=== PATIENT | male | born 1975 | race Caucasian/White ===

== ENCOUNTER 2018-01-17 14:12 | Observation (INO) | payer BC ==
[~2018-01-17] VITALS: Ht 188 cm; Wt 128.0 kg
[2018-01-17] VITALS (10 sets, daily range): BP systolic 114–142; BP diastolic 58–95; PULSE 54–127; RESP 16–22; TEMP 97.7; O2SAT 94–98
[2018-01-17] MEDS ORDERED: METOPROLOL TARTRATE 5 MG/5 ML VIAL IV PUSH STA ×2 (14:43→15:23)
[2018-01-17] MEDS ORDERED: SODIUM CHLOR 0.9% 1000 ML INJ 1,000 ML IV ONE ×3 (14:45→19:45)
[2018-01-17] MEDS ORDERED: SODIUM CHLORIDE 0.9% FLUSH 10 ML FLUSH IVF PRN (14:45)
[2018-01-17] MEDS ORDERED: METOPROLOL TARTRATE 5 MG/5 ML VIAL IV PUSH ONE (15:15)
[2018-01-17 15:25] LABS: AUTOMATED NEUTROPHIL # 7.2 TH/MM3 (1.8-7.7); BASOPHIL # 0.1 TH/MM3 (0-0.2); BASOPHIL % 0.6 % (0.0-2.0); EOSINOPHIL # 0.1 TH/MM3 (0-0.4); EOSINOPHIL % 1.3 % (0.0-4.0); HEMATOCRIT 49.1 % (39.0-51.0); HEMOGLOBIN 16.9 GM/DL (13.0-17.0); LYMPH % 8.4 % (9.0-44.0); LYMPHOCYTE # 0.8 TH/MM3 (1.0-4.8); MEAN CELL VOLUME 79.3 FL (80.0-100.0); MEAN CORPUSCULAR HEMOGLOBIN 27.3 PG (27.0-34.0); MEAN CORPUSCULAR HGB CONC 34.4 % (32.0-36.0); MEAN PLATELET VOLUME 9.1 FL (7.0-11.0); MONO % 11.2 % (0.0-8.0); NEUT % 78.5 % (16.0-70.0); PLATELET COUNT 257 TH/MM3 (150-450); RED BLOOD COUNT 6.19 MIL/MM3 (4.50-5.90); RED CELL DISTRIBUTION WIDTH 14.1 % (11.6-17.2); WHITE BLOOD COUNT 9.1 TH/MM3 (4.0-11.0)
--- NOTE | 2018-01-17 15:26 | RADRPT ---
EXAM DATE/TIME: 01/17/2018 14:45 [facility] COMPARISON: No previous studies available for comparison. INDICATIONS : Palpitations, chest pain, short of breath. MEDICAL HISTORY : high blood pressure. SURGICAL HISTORY : None. ENCOUNTER: Initial ACUITY: 2 days PAIN SCORE: 5/10 LOCATION: Bilateral chest FINDINGS: A single view of the chest demonstrates the lungs to be symmetrically aerated without evidence of mas s, infiltrate or effusion. The cardiomediastinal contours are unremarkable. Osseous structures are intact. CONCLUSION: Normal examination. Eamon Luis MD on January 17, 2018 at 15:24 Board Certified Radiologist. This report was verified electronically.
[2018-01-17 15:34] LABS: PROTHROMBIN TIME - PATIENT 10.4 SEC (9.8-11.6)
--- NOTE | 2018-01-17 15:42 | PD ---
HPI Chief Complaint: Cardiac Complaint Time Seen by Provider: 14:24 Travel History International Travel<30 days: No Contact w/Intl Traveler<30days: No Traveled to known affect area: No History of Present Illness HPI Patient is a 42-year-old male who presents the emergency room with complaints of palpitations. Patient reports that he began to have palpitations last night , reports that he was just not feeling well. Patient reports that symptoms persisted until this morning, reports that they he does feel short of breath with the symptoms. Patient is from [facility], reports that he drove to [place] for vacation about 2 weeks ago. Patient denies history of hypertension or hyperlipidemia or diabetes, denies history of atrial fibrillation. Patient with no history of PE or DVT. PFSH Past Medical History Medical History: Denies Significant Hx Diminished Hearing: No Tetanus Vaccination: < 5 Years Influenza Vaccination: No Social History Alcohol Use: No Tobacco Use: Yes Substance Use: No Allergies-Medications (Allergen,Severity, Reaction): Coded Allergies: No Known Allergies (Unverified , 01/17/18) Review of Systems General / Constitutional: No: Fever Eyes: No: Visual changes HENT: No: Headaches Cardiovascular: Positive: Palpitations, No: Chest Pain or Discomfort Respiratory: Positive: Shortness of Breath Gastrointestinal: No: Abdominal Pain Genitourinary: No: Dysuria Musculoskeletal: No: Pain Skin: No Rash Neurologic: No: Weakness Psychiatric: No: Depression Endocrine: No: Polydipsia Hematologic/Lymphatic: No: Easy Bruising Physical Exam Narrative GENERAL: Moderate distress SKIN: Focused skin assessment warm/dry. HEAD: Atraumatic. Normocephalic. EYES: Pupils equal and round. No scleral icterus. No injection or drainage. ENT: No nasal bleeding or discharge. Mucous membranes pink and moist. NECK: Trachea midline. No JVD. CARDIOVASCULAR: Irregularly irregular. No murmur appreciated. RESPIRATORY: No accessory muscle use. Clear to auscultation. Breath sounds equal bilaterally. GASTROINTESTINAL: Abdomen soft, non-tender, nondistended. Hepatic and splenic margins not palpable. MUSCULOSKELETAL: No obvious deformities. No clubbing. No cyanosis. No edema. NEUROLOGICAL: Awake and alert. No obvious cranial nerve deficits. Motor grossly within normal limits. Normal speech. PSYCHIATRIC: Appropriate mood and affect; insight and judgment normal. Data Data Last Documented VS Vital Signs Date Time Temp Pulse Resp B/P (MAP) Pulse Ox O2 Delivery O2 Flow Rate FiO2 01/17/18 15:36 113 18 115/62 (79) 98 01/17/18 14:48 Room Air Orders Orders Electrocardiogram (01/17/18 14:42) Ckmb (Isoenzyme) Profile (01/17/18 14:42) Complete Blood Count With Diff (01/17/18 14:42) Comprehensive Metabolic Panel (01/17/18 14:42) Magnesium (Mg) (01/17/18 14:42) Prothrombin Time / Inr (Pt) (01/17/18 14:42) Act Partial Throm Time (Ptt) (01/17/18 14:42) Troponin I (01/17/18 14:42) Chest, Single Ap (01/17/18 14:42) Ecg Monitoring (01/17/18 14:42) Iv Access Insert/Monitor (01/17/18 14:42) Oximetry (01/17/18 14:42) Sodium Chloride 0.9% Flush (Ns Flush) (01/17/18 14:45) Sodium Chlor 0.9% 1000 Ml Inj (Ns 1000 M (01/17/18 14:45) Metoprolol Tartrate Inj (Lopressor Inj) (01/17/18 14:43) Metoprolol Tartrate Inj (Lopressor Inj) (01/17/18 15:15) Metoprolol Tartrate Inj (Lopressor Inj) (01/17/18 15:23) Aspirin Chew (Aspirin Chew) (01/17/18 15:45) Ventilation & Perfusion Scan (01/17/18 ) Us Leg Venous Doppler Bilat (01/17/18 ) Admit Order (Ed Use Only) (01/17/18 16:49) Labs Laboratory Tests Test 01/17/18 14:58 White Blood Count 9.1 TH/MM3 Red Blood Count 6.19 MIL/MM3 Hemoglobin 16.9 GM/DL Hematocrit 49.1 % Mean Corpuscular Volume 79.3 FL Mean Corpuscular Hemoglobin 27.3 PG Mean Corpuscular Hemoglobin Concent 34.4 % Red Cell Distribution Width 14.1 % Platelet Count 257 TH/MM3 Mean Platelet Volume 9.1 FL Neutrophils (%) (Auto) 78.5 % Lymphocytes (%) (Auto) 8.4 % Monocytes (%) (Auto) 11.2 % Eosinophils (%) (Auto) 1.3 % Basophils (%) (Auto) 0.6 % Neutrophils # (Auto) 7.2 TH/MM3 Lymphocytes # (Auto) 0.8 TH/MM3 Monocytes # (Auto) 1.0 TH/MM3 Eosinophils # (Auto) 0.1 TH/MM3 Basophils # (Auto) 0.1 TH/MM3 CBC Comment DIFF FINAL Differential Comment Prothrombin Time 10.4 SEC Prothromb Time International Ratio 1.0 RATIO Activated Partial Thromboplast Time 27.3 SEC Blood Urea Nitrogen 21 MG/DL Creatinine 1.67 MG/DL Random Glucose 171 MG/DL Total Protein 7.7 GM/DL Albumin 3.7 GM/DL Calcium Level 9.2 MG/DL Magnesium Level 2.1 MG/DL Alkaline Phosphatase 118 U/L Aspartate Amino Transf (AST/SGOT) 28 U/L Alanine Aminotransferase (ALT/SGPT) 57 U/L Total Bilirubin 1.3 MG/DL Sodium Level 140 MEQ/L Potassium Level 3.7 MEQ/L Chloride Level 104 MEQ/L Carbon Dioxide Level 25.7 MEQ/L Anion Gap 10 MEQ/L Estimat Glomerular Filtration Rate 46 ML/MIN Total Creatine Kinase 65 U/L Troponin I LESS THAN 0.02 NG/ML MDM Medical Decision Making Medical Screen Exam Complete: Yes Emergency Medical Condition: Yes Medical Record Reviewed: Yes Interpretation(s) EKG at 1439: A. fib with RVR at 140 bpm, QT/QTc 302/383 Differential Diagnosis A. fib, PE, electrolyte abnormality Narrative Course During the course of the patients emergency department visit, the patients history, examination, and differential diagnosis were reviewed with the patient. The patient was placed on a bus driver/monitor with oximetry and frequent blood pressure monitoring. The patient had an IV access obtained and blood work sent for analysis. The patient was initially provided IV metoprolol 5 mg every 5 hours 3 with improvement of heart rate. Patient was also given aspirin. The patients laboratory studies were reviewed and remarkable for: CBC & BMP Diagram 01/17/18 14:58 Total Protein 7.7, Albumin 3.7, Calcium Level 9.2, Magnesium Level 2.1, Alkaline Phosphatase 118 H, Aspartate Amino Transf (AST/SGOT) 28, Alanine Aminotransferase (ALT/SGPT) 57, Total Bilirubin 1.3 H Radiology studies were reviewed and remarkable for: Last Impressions Chest X-Ray 01/17/18 4492 Signed Impressions: Service Date/Time: Wednesday, January 17, 2018 14:45 - CONCLUSION: Normal examination. Eamon Luis MD Patient's creatinine is 1.67, troponin 0 0.02 Patient's heart rate currently 110-120 after 3 doses of IV Lopressor. Patient with recent travels from [place] to [place] (17.5 hour car ride), patient with new onset A. fib which could be secondary to PE. He does have an elevated creatinine and a CTA cannot be ordered to rule out PE. VQ scan as well as doppler US ordered. Patient will require admission to the hospital for new onset afib. An aspirin was given to patient upon arrival to ER case reviewed with FP resident who accepts pt to the service under Dr. Walker, understands that vq and doppler us of legs are pending - service will follow up with results of studies during admission Diagnosis Primary Impression: Atrial fibrillation with RVR Additional Impression: Renal insufficiency Admitting Information Admitting Physician Requests: Observation Bridget Lemus DO Jan 17, 2018 15:42
[2018-01-17] MEDS ORDERED: ASPIRIN 81 MG CHEW TAB CHEW ONE (15:45)
[2018-01-17 16:00] LABS: ALBUMIN 3.7 GM/DL (3.4-5.0); ALT (GPT) 57 U/L (12-78); AST (GOT) 28 U/L (15-37); BICARBONATE 25.7 MEQ/L (21.0-32.0); BLOOD UREA NITROGEN 21 MG/DL (7-18); CALCIUM 9.2 MG/DL (8.5-10.1); CHLORIDE 104 MEQ/L (98-107); CREATININE 1.67 MG/DL (0.60-1.30); GLOMERULAR FILTRATION RATE 46 ML/MIN (>89); GLUCOSE,RANDOM 171 MG/DL (74-106); MAGNESIUM 2.1 MG/DL (1.5-2.5); SODIUM (NA) 140 MEQ/L (136-145)
[2018-01-17 16:05] LABS: ALKALINE PHOSPHATASE 118 U/L (45-117); TOTAL BILIRUBIN ADULT 1.3 MG/DL (0.2-1.0); TOTAL PROTEIN 7.7 GM/DL (6.4-8.2); TROPONIN I LESS THAN 0.02 NG/ML (0.02-0.05)
--- NOTE | 2018-01-17 16:44 | HHI.HP ---
HPI Service Family Medicine Primary Care Physician Unknown Admission Diagnosis Diagnoses: International Travel<30 Days: No Contact w/Intl Traveler<30days: No Known Affected Area: No History of Present Illness 42 yo M presenting with chest pain, palpitations. First noticed symptoms last night when he developed some mild palpitations. Symptoms resolved until the morning of presentation when he developed some chest tightness, palpitations again. Symptoms have persisted all day. Also experiencing some jaw pain, nausea , overall not feeling well. Was getting SOB with exertion today. States he has had occasional palpitations in the past that would quickly resolve. Was treated for bronchitis with albuterol, Claritin 3 weeks ago. Has history of HTN. Review of Systems Constitutional: COMPLAINS OF: Fever, Chills (subjective), DENIES: Weight gain, Weight loss Eyes: DENIES: Blurred vision, Eye pain Ears, nose, mouth, throat: COMPLAINS OF: Throat pain Respiratory: DENIES: Wheezing, Sputum production Cardiovascular: COMPLAINS OF: Chest pain, Palpitations, Dyspnea on Exertion, DENIES: Syncope, Lower Extremity Edema Gastrointestinal: COMPLAINS OF: Nausea, DENIES: Abdominal pain, Bloody stools, Constipation, Diarrhea, Vomiting Genitourinary: DENIES: Hematuria, Dysuria Musculoskeletal: DENIES: Joint Swelling Integumentary: DENIES: Rash Neurologic: DENIES: Headache, Localized weakness Psychiatric: DENIES: Confusion Past Family Social History Past Medical History HTN Past Surgical History I&D of L leg 1 year ago Tonsillectomy Reported Medications Chlorthalidone 50mg daily Lisinopril 40mg daily Allergies: Coded Allergies: No Known Allergies (Unverified , 01/17/18) Family History Heart disease in both sides of family Stroke in maternal grandfather Social History Lives in [facility], in [facility] for vacation Drinks several beers per day, sometimes more on the weekends. Never had symptoms of alcohol withdrawal Quit smoking 5 months ago. Formerly 1 pack per week for 10+ years No illicit drugs Physical Exam Vital Signs Vital Signs Date Time Temp Pulse Resp B/P (MAP) Pulse Ox O2 Delivery O2 Flow Rate FiO2 01/17/18 15:36 113 18 115/62 (79) 98 01/17/18 14:57 125 01/17/18 14:48 150 Room Air 01/17/18 14:17 127 22 142/60 (87) 98 Physical Exam GENERAL: This is a well-nourished, well-developed patient, in no apparent distress. SKIN: No rashes, ecchymoses or lesions. Cool and dry. HEAD: Atraumatic. Normocephalic. No temporal or scalp tenderness. EYES: Pupils equal round and reactive. Extraocular motions intact. No scleral icterus. No injection or drainage. ENT: Nose without bleeding, purulent drainage or septal hematoma. Throat without erythema, tonsillar hypertrophy or exudate. Uvula midline. Airway patent. NECK: Trachea midline. No JVD or lymphadenopathy. Supple, nontender, no meningeal signs. CARDIOVASCULAR: Irregularly irregular rhythm, rate in the 120's. No murmurs appreciated RESPIRATORY: Clear to auscultation. Breath sounds equal bilaterally. No wheezes , rales, or rhonchi. GASTROINTESTINAL: Abdomen soft, non-tender, nondistended. No hepato-splenomegaly , or palpable masses. No guarding. MUSCULOSKELETAL: Extremities without clubbing, cyanosis, or edema. No joint tenderness, effusion, or edema noted. No calf tenderness. Negative Homans sign bilaterally. NEUROLOGICAL: Awake and alert. Cranial nerves II through XII intact. Motor and sensory grossly within normal limits. Five out of 5 muscle strength in all muscle groups. Normal speech. Laboratory Laboratory Tests Test 01/17/18 14:58 White Blood Count 9.1 Red Blood Count 6.19 Hemoglobin 16.9 Hematocrit 49.1 Mean Corpuscular Volume 79.3 Mean Corpuscular Hemoglobin 27.3 Mean Corpuscular Hemoglobin Concent 34.4 Red Cell Distribution Width 14.1 Platelet Count 257 Mean Platelet Volume 9.1 Neutrophils (%) (Auto) 78.5 Lymphocytes (%) (Auto) 8.4 Monocytes (%) (Auto) 11.2 Eosinophils (%) (Auto) 1.3 Basophils (%) (Auto) 0.6 Neutrophils # (Auto) 7.2 Lymphocytes # (Auto) 0.8 Monocytes # (Auto) 1.0 Eosinophils # (Auto) 0.1 Basophils # (Auto) 0.1 CBC Comment DIFF FINAL Differential Comment Prothrombin Time 10.4 Prothromb Time International Ratio 1.0 Activated Partial Thromboplast Time 27.3 Blood Urea Nitrogen 21 Creatinine 1.67 Random Glucose 171 Total Protein 7.7 Albumin 3.7 Calcium Level 9.2 Magnesium Level 2.1 Alkaline Phosphatase 118 Aspartate Amino Transf (AST/SGOT) 28 Alanine Aminotransferase (ALT/SGPT) 57 Total Bilirubin 1.3 Sodium Level 140 Potassium Level 3.7 Chloride Level 104 Carbon Dioxide Level 25.7 Anion Gap 10 Estimat Glomerular Filtration Rate 46 Total Creatine Kinase 65 Troponin I LESS THAN 0.02 Result Diagram: 01/17/18 1458 01/17/18 1458 Imaging Last 48 hours Impressions Chest X-Ray 01/17/18 1442 Signed Impressions: Service Date/Time: Wednesday, January 17, 2018 14:45 - CONCLUSION: Normal examination. MD Nafisa Montanez VTE Risk Assessment Nafisa VTE Risk Assessment: No/Low Risk (score <= 1) Leticiai Risk Assessment Model Point Value = 1 Point Value = 2 Point Value = 3 Point Value = 5 Age 41-60 Minor surgery BMI > 25 kg/m2 Swollen legs Varicose veins or History of unexplained or recurrent spontaneous Oral contraceptives or hormone replacement Sepsis (< 1 month) Serious lung disease, including pneumonia (< 1 month) Abnormal pulmonary function Acute myocardial infarction Congestive heart failure (< 1 month) History of inflammatory bowel disease Medical patient at bed rest Age 61-74 Arthroscopic surgery Major open surgery (> 45 min) Laparoscopic surgery (> 45 min) Malignancy Confined to bed (> 72 hours) Immobilizing plaster cast Central venous access Age >= 75 History of VTE Family history of VTE Factor V Leiden Prothrombin [id number] Lupus anticoagulant Anticardiolipin antibodies Elevated serum homocysteine Heparin-induced thrombocytopenia Other congenital or acquired thrombophilia Stroke (< 1 month) Elective arthroplasty Hip, pelvis, or leg fracture Acute spinal cord injury (< 1 month) Prophylaxis Regimen Total Risk Factor Score Risk Level Prophylaxis Regimen 0-1 Low Early ambulation 2 Moderate Order ONE of the following: *Sequential Compression Device (SCD) *Heparin 5000 units SQ BID 3-4 Higher Order ONE of the following medications: *Heparin 5000 units SQ TID *Enoxaparin/Lovenox 40 mg SQ daily (WT < 150 kg, CrCl > 30 mL/min) *Enoxaparin/Lovenox 30 mg SQ daily (WT < 150 kg, CrCl > 10-29 mL/min) *Enoxaparin/Lovenox 30 mg SQ BID (WT < 150 kg, CrCl > 30 mL/min) AND/OR *Sequential Compression Device (SCD) 5 or more Highest Order ONE of the following medications: *Heparin 5000 units SQ TID (Preferred with Epidurals) *Enoxaparin/Lovenox 40 mg SQ daily (WT < 150 kg, CrCl > 30 mL/min) *Enoxaparin/Lovenox 30 mg SQ daily (WT < 150 kg, CrCl > 10-29 mL/min) *Enoxaparin/Lovenox 30 mg SQ BID (WT < 150 kg, CrCl > 30 mL/min) AND *Sequential Compression Device (SCD) Assessment and Plan Assessment and Plan 42-year-old male with a history of hypertension presenting to the ED with chest pain, palpitations. Initial evaluation is found patient to be in A. fib with RVR and SUE. Patient is also been complaining of dyspnea on exertion, and in the setting of a recent 17 hour car ride will also order a VQ scan and lower extremity Dopplers to rule out DVT/PE. Consulting cardiology on admission Code Status Full code Discussed Condition With Dr. Jose Morales Problem List: (1) Atrial fibrillation with RVR ICD Codes: I48.91 - Unspecified atrial fibrillation Status: Acute Plan: Patient presented with chest pain, palpitations for the last 24 hours New onset A. fib with RVR on admission Initial ACS workup negative Received metoprolol 5 mg IV push 3 in the ED, continues to have heart rates in the 110s-120s Received aspirin 162mg chew in ED Scheduling Cardizem 30 mg p.o. 4 times daily Aspiring 81mg daily Consulting cardiology Echocardiogram Trending EKG, troponins TSH pending (2) HTN (hypertension) ICD Codes: I10 - Essential (primary) hypertension Plan: Known history of HTN Takes Chlorthalidone 50mg daily, Lisinopril 40mg daily BP mildly elevated on admission to 142/60 Will continue home meds (3) Dyspnea on exertion ICD Codes: R06.09 - Other forms of dyspnea Plan: Patient reporting dyspnea on exertion for last 2 days Had recent 17 hour car ride from [facility] to [facility] V/Q scan pending (avoiding contrast in setting of elevated Cr) BLE dopplers pending (4) Hyperglycemia ICD Codes: R73.9 - Hyperglycemia, unspecified Plan: Noted to have elevated BG on admission (171) ordering A1c, will follow up AM labs (5) SUE (acute kidney injury) ICD Codes: N17.9 - Acute kidney failure, unspecified Plan: Patient with elevated Creatinine/BUN on admission of 1.67 / 21 Ratio is not consistent with pre-renal etiology Received 1 L bolus in ED Will monitor for now, may be baseline renal function (6) FEN Plan: No IVF for now will replete electrolytes as needed Regular diet SCDs for DVT prophylaxis Elvin Jeffrey MD R1 Jan 17, 2018 16:44
[2018-01-17] MEDS ORDERED: BISACODYL 10 MG SUPP RECTAL PRN (17:00)
[2018-01-17] MEDS ORDERED: ONDANSETRON HCL 4 MG/2 ML VIAL IVP PRN (17:00)
[2018-01-17] MEDS ORDERED: SENNOSIDES 8.6 MG TAB PO PRN (17:00)
[2018-01-17] MEDS ORDERED: LACTULOSE SYRUP 20 GM/30 ML CUP PO PRN (17:00)
[2018-01-17] MEDS ORDERED: LISI40TA PO (17:00)
[2018-01-17] MEDS ORDERED: ACETAMINOPHEN 325 MG TAB PO PRN (17:00)
[2018-01-17] MEDS ORDERED: MAGNESIUM HYDROXIDE SUSP 30 ML CUP PO PRN (17:00)
[2018-01-17] MEDS ORDERED: DILTIAZEM HCL 30 MG TAB PO SCH (18:00)
[2018-01-17] MEDS ORDERED: CHLOR50 PO (18:25)
--- NOTE | 2018-01-17 18:44 | RADRPT ---
EXAM DATE/TIME: 01/17/2018 17:57 [facility] COMPARISON: No previous studies available for comparison. INDICATIONS : Shortness of breath and chest pain. MEDICAL HISTORY : Hypertension. SURGICAL HISTORY : Tonsillectomy. Incision and drainage. Left leg wound repair. ENCOUNTER: Initial ACUITY: 1 day PAIN SCORE: 0/10 LOCATION: Bilateral legs. TECHNIQUE: Venous ultrasound of the left and right leg was performed from the inguinal ligament to the proximal calf. Real-time, color Doppler and spectral tracing, compression and augmentation techniques were us ed. FINDINGS: RIGHT LEG: There is normal compressibility of the deep venous system from the inguinal region to the proximal ca lf. No echogenic clot is seen in the lumen of the common femoral, femoral, popliteal, and posterior tibial veins. There is a normal response of the venous system to proximal and distal augmentation an d respiration. LEFT LEG: There is normal compressibility of the deep venous system from the inguinal region to the proximal ca lf. No echogenic clot is seen in the lumen of the common femoral, femoral, popliteal, and posterior tibial veins. There is a normal response of the venous system to proximal and distal augmentation an d respiration. There are nonspecific bilateral inguinal lymph nodes that measure up to 1 cm in greatest short axis d imension. CONCLUSION: No venous thrombosis of either lower extremity. Jarad Polanco MD on January 17, 2018 at 18:41 Board Certified Radiologist. This report was verified electronically.
--- NOTE | 2018-01-17 19:04 | RADRPT ---
EXAM DATE/TIME: 01/17/2018 18:24 [facility] COMPARISON: One view chest x-ray same day. INDICATIONS : Short of breath. DOSE: 8.1 mCi Tc99m MAA IV 1.2 mCi Tc99m DTPA aerosol MEDICAL HISTORY : Smoker. SURGICAL HISTORY : None. ENCOUNTER: Initial ACUITY: 1 day PAIN SCALE: 4/10 LOCATION: Bilateral chest TECHNIQUE: Following five minutes of tidal breathing of DTPA aerosol, planar images of the lungs were performed in eight projections. The patient was then injected with MAA, and eight-view perfusion scan was perf ormed. FINDINGS: There is a homogeneous pattern of aerosol delivery to the periphery of both lungs. No focal ventilat ory defects are seen. LPO perfusion view indicates small segmental defect of the left lung, probably superior segment of th e left lower lobe. CONCLUSION: Segmental perfusion defect on the left as above. Intermediate probability study for pulmonary embolus . Jarad Polanco MD on January 17, 2018 at 19:00 Board Certified Radiologist. This report was verified electronically.
[2018-01-17] MEDS ORDERED: METOPROLOL TARTRATE 25 MG TAB PO ONE (19:30)
--- NOTE | 2018-01-17 19:42 | MB ---
cc: Kraig Fontenot MD DATE: 01/17/2018 HISTORY OF PRESENT ILLNESS: Anthony is a pleasant 42-year-old gentleman visiting from [place], presents with palpitations, chest pain, shortness of breath, found to be in AFib with rapid ventricular response. Heart rate is currently in the 130s, in AFib. He is resting comfortably. Denies chest pain, denies shortness of breath. Still having some palpitations. Otherwise, denies any fevers, chills, cough, GI or bleeding, PND, orthopnea, syncope or dizziness. PAST MEDICAL HISTORY: Per history of present illness. SOCIAL HISTORY: Does drink alcohol. He also smokes. ALLERGIES: NONE. MEDICATIONS PRIOR TO ADMISSION: None. MEDICATIONS IN THE HOSPITAL: Aspirin 81 mg daily, [place], lisinopril 40 mg daily, diltiazem 30 mg q.i.d. He also received IV Lopressor 5 mg IV x 3. PHYSICAL EXAMINATION: VITAL SIGNS: Pulse ranging between 113 and 126, blood pressure 132/95, sats 98% on room air, respiratory rate 16. GENERAL: He is alert and oriented x 3, in no acute distress. NECK: Supple. No JVD. No bruit. CARDIOVASCULAR: S1, S2. No murmurs, rubs or gallops. LUNGS: Clear to auscultation bilaterally. ABDOMEN: Soft, nontender, nondistended with positive bowel sounds. EXTREMITIES: No lower extremity edema. DIAGNOSTIC DATA: He had a V/Q scan, which shows a segmental perfusion defect on the left as above. Intermediate probability study for pulmonary embolus. Lower extremity ultrasound: No venous thrombosis of either lower extremity. Chest x-ray: Normal examination. LABORATORY DATA: White count 9.1, hemoglobin 16.9, hematocrit 49.1, platelet count 257. INR is 1.0. Sodium 140, potassium 3.7, chloride 104, bicarbonate 25.7, BUN 21, creatinine 1.67. Troponin less than 0.02. LFTs normal. Toxicology: Ethyl alcohol less than 3. INR 1.0. EKG: AFib at a rate of 140 beats per minute, incomplete right bundle branch block, rightward axis. DIAGNOSES: 1. Atrial fibrillation with rapid ventricular response. 2. Intermediate probability V/Q scan. DISCUSSION: At this point in time, we will get a pulmonary consult with Dr. Ramirez. The patient should be anticoagulated empirically. We will also add Lopressor 25 q. 6 for rate control. I will notify the ER attending and also Dr. Elvin Jeffrey, the medical doctor the patient is admitted to, About anticoagulation. MD BETZY Kelly/SHEREEN , 07:21 PM , 07:40 PM
[2018-01-17] MEDS ORDERED: ENOXAPARIN SODIUM 80 MG/0.8 ML SYRINGE SQ ONE (20:00)
--- NOTE | 2018-01-17 20:29 | MB ---
cc: James Ramirez MD, [place] W MD DATE: 01/17/2018 REASON FOR CONSULTATION: Possible pulmonary embolus. HISTORY OF PRESENT ILLNESS: Mr. Barahona is a 42-year-old male who has driven from [place] to the [facility] 2 weeks ago. He was doing well until this a.m. when he had developed shortness of breath and palpitation, which he believed would passed but did not at which point he came to the emergency room and was found to be in atrial fibrillation. The patient has no known history of diabetes, hypertension or previous heart disease. PAST MEDICAL HISTORY: No previous hospitalizations. No surgeries. No previous history of cardiac arrhythmia, diabetes mellitus, heart disease as above. SOCIAL HISTORY: He used to smoke. States he stopped smoking in September. ALLERGIES: NONE KNOWN TO MEDICATION. FAMILY HISTORY: Noncontributory. REVIEW OF SYSTEMS: A 12 point review of systems as per HPI and past history otherwise negative. PHYSICAL EXAMINATION: GENERAL: The patient is alert, pulse 128 irregular, respirations 18, blood pressure 115/60. HEENT: Unremarkable. Eyes without icterus. NECK: Without adenopathy or thyroid enlargement. Central trachea. CHEST: Clear to percussion and auscultation. CARDIOVASCULAR: Irregularity noted. ABDOMEN: Lax, audible bowel sounds. EXTREMITIES: No clubbing, cyanosis or edema. LABORATORY DATA: White count 9000, hemoglobin 16, hematocrit 49. Sodium 140, potassium 3.7, BUN 21, creatinine 1.67, glucose at 171, bilirubin at 1.3, alkaline phosphatase 118. INR at 1.0. IMAGING STUDIES: Chest x-ray: No acute abnormality. VQ lung scan: Perfusion defect left upper lung reported intermediate probability for PE. IMPRESSION: 1. Abnormal VQ scan as above, pulmonary embolism suspect. 2. New onset atrial fibrillation. 3. CT angiogram not possible in view of the patient's elevated serum creatinine. 3. Obesity. 4. Smoking history until 08/2018. PLAN: It would be appropriate to proceed with anticoagulation overnight. Followup the patient's creatinine and provide IV hydration. When renal function permits, CT angiography would be appropriate. However, given the presence of an isolated perfusion defect, it is indeed suspicious for underlying pulmonary embolism. His lower extremity venous studies have been without evidence of thrombosis. Dr. Fontenot is following the patient from a cardiology standpoint in view of his atrial fibrillation. I do thank you for asking me to partake in Mr. Barahona's care. MD JING Menon/ , 08:04 PM , 08:27 PM
[2018-01-17] MEDS ORDERED: ENOXAPARIN SODIUM 60 MG/0.6 ML SYRINGE SQ ONE (20:30)
[2018-01-17] MEDS: DOCUSATE SODIUM 50 MG/SENNA 8.6 MG TAB PO SCH (20:54)
[2018-01-17 21:51] LABS: TROPONIN I 0.02 NG/ML (0.02-0.05)
[2018-01-17] MEDS: METOPROLOL TARTRATE 25 MG TAB PO SCH (22:00)
[2018-01-17 22:14] LABS: HEMOGLOBIN A1C 4.6 % (4.3-6.0)
[2018-01-17] MEDS: DILTIAZEM HCL 30 MG TAB PO SCH (23:27)
[2018-01-18] VITALS (17 sets, daily range): BP systolic 116–143; BP diastolic 69–92; PULSE 84–115; RESP 16–20; TEMP 97.3–98.7; O2SAT 94–98
[2018-01-18 05:21] LABS: HEMATOCRIT 43.6 % (39.0-51.0); HEMOGLOBIN 15.4 GM/DL (13.0-17.0); MEAN CELL VOLUME 79.7 FL (80.0-100.0); MEAN CORPUSCULAR HEMOGLOBIN 28.1 PG (27.0-34.0); MEAN CORPUSCULAR HGB CONC 35.3 % (32.0-36.0); MEAN PLATELET VOLUME 9.1 FL (7.0-11.0); PLATELET COUNT 204 TH/MM3 (150-450); RED BLOOD COUNT 5.47 MIL/MM3 (4.50-5.90); WHITE BLOOD COUNT 6.9 TH/MM3 (4.0-11.0)
[2018-01-18 05:46] LABS: CALCIUM 8.5 MG/DL (8.5-10.1); CREATININE 1.11 MG/DL (0.60-1.30)
[2018-01-18] MEDS: METOPROLOL TARTRATE 25 MG TAB PO SCH ×3 (06:39→21:31)
[2018-01-18] MEDS: DILTIAZEM HCL 30 MG TAB PO SCH ×3 (07:53→17:23)
[2018-01-18] MEDS ORDERED: ENOXAPARIN SODIUM 150 MG/ML SYRINGE SQ SCH (08:00)
[2018-01-18] MEDS: DOCUSATE SODIUM 50 MG/SENNA 8.6 MG TAB PO SCH ×2 (08:11→21:00)
[2018-01-18] MEDS: LISINOPRIL 20 MG TAB PO SCH (08:12)
[2018-01-18] MEDS: CHLORTHALIDONE 50 MG TAB PO SCH (08:13)
[2018-01-18] MEDS: ASPIRIN 81 MG CHEW TAB PO SCH (08:13)
--- NOTE | 2018-01-18 09:07 | HHI.PR ---
Subjective Remarks ALERT NO DISTRESS Objective Vital Signs Date Time Temp Pulse Resp B/P (MAP) Pulse Ox O2 Delivery O2 Flow Rate FiO2 01/18/18 08:38 97 21 01/18/18 07:55 115 01/18/18 07:44 97.3 109 18 135/87 (103) 97 01/18/18 06:09 95 18 118/76 (90) 98 01/18/18 03:43 21 01/18/18 03:31 98.4 88 16 131/89 (103) 95 01/18/18 02:48 96 01/18/18 01:35 98.7 91 16 135/79 (97) 94 01/17/18 23:31 103 01/17/18 23:08 100 18 133/77 (95) 96 01/17/18 22:52 98 01/17/18 22:27 97.7 54 16 114/58 (76) 96 01/17/18 21:39 01/17/18 20:57 108 16 119/64 (82) 98 Room Air 01/17/18 19:05 16 98 Room Air 01/17/18 19:05 126 16 132/95 (107) 98 Room Air 01/17/18 17:12 94 21 01/17/18 15:36 113 18 115/62 (79) 98 01/17/18 14:57 125 01/17/18 14:48 150 Room Air 01/17/18 14:17 127 22 142/60 (87) 98 I/O 01/17/18 01/17/18 01/17/18 01/18/18 01/18/18 01/18/18 07:00 15:00 23:00 07:00 15:00 23:00 Intake Total 1000 ml 500 ml Output Total 900 ml Balance 1000 ml -400 ml Intake Oral 500 ml IV Total 1000 ml Output Urine Total 900 ml Result Diagram: 01/18/1843101/18/18431 Objective Remarks GENERAL: SKIN: Warm and dry. HEAD: Atraumatic. Normocephalic. EYES: Pupils equal and round. No scleral icterus. No injection or drainage. ENT: No nasal bleeding or discharge. Mucous membranes pink and moist. NECK: Trachea midline. No JVD. CARDIOVASCULAR: Regular rate and rhythm. RESPIRATORY: No accessory muscle use. Clear to auscultation. Breath sounds equal bilaterally. GASTROINTESTINAL: Abdomen soft, non-tender, nondistended. Hepatic and splenic margins not palpable. MUSCULOSKELETAL: Extremities without clubbing, cyanosis, or edema. No obvious deformities. NEUROLOGICAL: Awake and alert. No obvious cranial nerve deficits. Motor grossly within normal limits. Five out of 5 muscle strength in the arms and legs. Normal speech. PSYCHIATRIC: Appropriate mood and affect; insight and judgment normal. Assessment and Plan Assessment and Plan PE SUSPECT PLAN CTA TO CONFIRM OR R/O PE James Ramirez MD Jan 18, 2018 09:07
--- NOTE | 2018-01-18 10:26 | RADRPT ---
EXAM DATE/TIME: 01/18/2018 09:34 [facility] COMPARISON: No previous studies available for comparison. INDICATIONS : Chest pain, palpitations, abnormal lung scan IV CONTRAST: 70 cc Omnipaque 350 (iohexol) IV RADIATION DOSE: 23.14 CTDIvol (mGy) MEDICAL HISTORY : Hypertension. SURGICAL HISTORY : None. ENCOUNTER: Initial ACUITY: 2 days PAIN SCALE: 5/10 LOCATION: chest TECHNIQUE: Volumetric scanning of the chest was performed using a pulmonary embolism protocol MIP images were re constructed. Using automated exposure control and adjustment of the mA and/or kV according to patien t size, radiation dose was kept as low as reasonably achievable to obtain optimal diagnostic quality images. DICOM format image data is available electronically for review and comparison. Follow-up recommendations for detected pulmonary nodules are based at a minimum on nodule size and pa tient risk factors according to Fleischner Society Guidelines. FINDINGS: There is no evidence of pulmonary embolism. Extensive mediastinal and bilateral hilar lymphadenopathy is noted. Enlarged lymph nodes are noted within the prevascular, pretracheal, right paratracheal and subcarinal mediastinum with the largest measuring 4.5 cm in the subcarinal space scattered noncalcif ied pulmonary nodules are noted within the right lung ranging in size from 4-5 mm and raising the pos sibility of metastatic disease. Diffuse increased interstitial markings are noted bilaterally. The he art is enlarged. Degenerative changes and scoliosis of the thoracic spine are noted. CONCLUSION: 1. No evidence of pulmonary embolism. 2. Extensive mediastinal and bilateral hilar lymphadenopathy. 3. Scattered noncalcified pulmonary nodules within the right lung raising the possibility of metastat ic disease. 4. Diffuse increased interstitial markings bilaterally. 5. Cardiomegaly. 6. Degenerative changes and scoliosis of the thoracic spine. Tank Davenport MD on January 18, 2018 at 9:47 Board Certified Radiologist. This report was verified electronically.
--- NOTE | 2018-01-18 11:20 | HHI.FPPN ---
Subjective Remarks No acute events overnight. Patient states that his chest discomfort has improved dramatically and he is no longer experiencing any chest discomfort. He denies any SOB at this time. (Elvin Jeffrey MD R1) Objective Vitals Vital Signs Date Time Temp Pulse Resp B/P (MAP) Pulse Ox O2 Delivery O2 Flow Rate FiO2 01/18/18 11:16 98.3 101 20 120/75 (90) 96 01/18/18 08:38 97 21 01/18/18 07:55 115 01/18/18 07:44 97.3 109 18 135/87 (103) 97 01/18/18 06:09 95 18 118/76 (90) 98 01/18/18 03:43 21 01/18/18 03:31 98.4 88 16 131/89 (103) 95 01/18/18 02:48 96 01/18/18 01:35 98.7 91 16 135/79 (97) 94 01/17/18 23:31 103 01/17/18 23:08 100 18 133/77 (95) 96 01/17/18 22:52 98 01/17/18 22:27 97.7 54 16 114/58 (76) 96 01/17/18 21:39 01/17/18 20:57 108 16 119/64 (82) 98 Room Air 01/17/18 19:05 16 98 Room Air 01/17/18 19:05 126 16 132/95 (107) 98 Room Air 01/17/18 17:12 94 21 01/17/18 15:36 113 18 115/62 (79) 98 01/17/18 14:57 125 01/17/18 14:48 150 Room Air 01/17/18 14:17 127 22 142/60 (87) 98 I/O 01/17/18 01/17/18 01/17/18 01/18/18 01/18/18 01/18/18 07:00 15:00 23:00 07:00 15:00 23:00 Intake Total 1000 ml 500 ml Output Total 900 ml Balance 1000 ml -400 ml Intake Oral 500 ml IV Total 1000 ml Output Urine Total 900 ml (Elvin Jeffrey MD R1) Result Diagram: 01/18/18 0432 01/18/18 0432 Imaging Last [address] Angiography 01/18/18 0000 Signed Impressions: Service Date/Time: December 09:34 - CONCLUSION: 1. No evidence of pulmonary embolism. 2. Extensive mediastinal and bilateral hilar lymphadenopathy. 3. Scattered noncalcified pulmonary nodules within the right lung raising the possibility of metastatic disease. 4. Diffuse increased interstitial markings bilaterally. 5. Cardiomegaly. 6. Degenerative changes and scoliosis of the thoracic spine. Tank Davenport MD Chest X-Ray 01/17/18 1442 Signed Impressions: Service Date/Time: Wednesday, January 17, 2018 14:45 - CONCLUSION: Normal examination. Eamon Luis MD Lung Scan-VQ Nuclear Medicine 01/17/18 0000 Signed Impressions: Service Date/Time: Wednesday, January 17, 2018 18:24 - CONCLUSION: Segmental perfusion defect on the left as above. Intermediate probability study for pulmonary embolus. Jarad Polanco MD Lower Extremity Ultrasound 01/17/18 0000 Signed Impressions: Service Date/Time: Wednesday, January 17, 2018 17:57 - CONCLUSION: No venous thrombosis of either lower extremity. Jarad Polanco MD Objective Remarks GENERAL: Well-nourished, well-developed patient. No acute distress. SKIN: Warm and dry. No rash. EYES: No scleral icterus. No injection or drainage. PERRLA. EOMI. HENT: Normocephalic. Atraumatic. MMM. NECK: No visible JVD or lymphadenopathy. CARDIOVASCULAR: Warm and well perfused. Irregularly irregular with heart rate in the 100s. RESPIRATORY: Normal respiratory effort. Clear to auscultation bilaterally with no wheezes GASTROINTESTINAL: Abdomen nondistended, nontender. MUSCULOSKELETAL: Strength grossly WNL. No BLE edema BACK: Without obvious deformity. NEURO/PSYCH: Afocal. Awake, alert, and oriented x3. (Elvin Jeffrey MD R1) A/P Assessment and Plan 42-year-old male with a history of hypertension presenting to the ED with chest pain, palpitations. Initial evaluation found patient to be in A. fib with RVR and SUE. Patient was complaining of dyspnea on exertion, and in the setting of a recent 17 hour car ride will also order a VQ scan and lower extremity Dopplers to rule out DVT/PE. Consulting cardiology on admission. V/Q scan showed intermediate probability study for PE. Therapeutic Lovenox was started as given IVF prior to having a CTA done on the morning of 01/18. CTA did not show PE but did show extensive mediastinal and bilateral hilar lymphadenopathy as well as scattered noncalcified pulmonary nodules within the right lung. Discharge Planning Pending rate control, further workup/management of CTA findings. Likely 1 more day (Elvin Jeffrey MD R1) Attending Attestation Patient seen, examined and discussed with the medicine team. Patient was admitted with chest discomfort and shortness of breath. There was concern for pulmonary embolus because of the recent long drive from [facility] to [place] with his parents. He has known history of hypertension taking lisinopril and chlorthalidone. Please see history and physical examination for this admission for additional historical details including past, family, social history and review of systems at the time of admission. This morning, he is asymptomatic, feels much improved with no shortness of breath. 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 He recently had a significant weight loss but my sense is that this was intentional. Physical examination today is as documented in the resident's note, I agree with the exam findings. CTA was remarkable for significant hilar lymphadenopathy and this will be explored further. I agree with the plan as documented. (Angela Walker MD) Problem List: (1) Atrial fibrillation with RVR ICD Codes: I48.91 - Unspecified atrial fibrillation Status: Acute Plan: Patient presented with chest pain, palpitations for the last 24 hours New onset A. fib with RVR on admission ACS workup negative Received metoprolol 5 mg IV push 3 in the ED, continues to have heart rates in the 110s-120s Received aspirin 162mg chew in ED TSH normal Cardizem 30 mg p.o. 4 times daily Cardiology started Lopressor 25 mg p.o. 3 times daily Rate has been more well controlled but patient continues to be in A. fib. Aspiring 81mg daily Consulted cardiology Echocardiogram pending (2) Dyspnea on exertion ICD Codes: R06.09 - Other forms of dyspnea Plan: Patient reporting dyspnea on exertion for last 2 days Had recent [address] from [facility] to [facility] VQ scan on admission showed intermediate probability for PE BLE dopplers were negative Patient was started on therapeutic Lovenox and given IV fluids to treat SUE prior to CTA See CTA findings below (3) Abnormal computed tomography angiography (CTA) ICD Codes: R93.8 - Abnormal findings on diagnostic imaging of other specified body structures Plan: CTA ordered on 01/18 to rule out PE While the imaging study did not show evidence of a pulmonary embolism, it did show extensive mediastinal and bilateral hilar lymphadenopathy as well as scattered noncalcified pulmonary nodules in the right lung Pulmonology has already been consulted Spoke with radiologist and differential should include sarcoidosis as well as lymphoma Consulting heme/onc (4) HTN (hypertension) ICD Codes: I10 - Essential (primary) hypertension Plan: Known history of HTN Takes Chlorthalidone 50mg daily, Lisinopril 40mg daily Will continue home meds (5) SUE (acute kidney injury) ICD Codes: N17.9 - Acute kidney failure, unspecified Plan: Patient with elevated Creatinine/BUN on admission of 1.67 / 21 on admission Received 3 L boluses on 01/17 Creatinine improved to 1.11 on 01/18. Will continue to monitor (6) FEN Plan: No IVF for now will replete electrolytes as needed Regular diet On therapeutic Lovenox (Elvin Jeffrey MD R1) Elvin Jeffrey MD R1 Jan 18, 2018 11:20 Angela Walker MD Jan 18, 2018 14:47
--- NOTE | 2018-01-18 15:24 | ECHRPT ---
Indication: Persistent atrial fibrillation CONCLUSIONS BP: 120 / 75 HR: 101 Rhythm: Atrial fibrillation MEASUREMENTS (Male / Female) Normal Values Technical Quality:Good 2D ECHO LV Diastolic Diameter PLAX 5.1 cm 4.2 - 5.9 / 3.9 - 5.3 cm LV Systolic Diameter PLAX 3.5 cm IVS Diastolic Thickness 1.0 cm 0.6 - 1.0 / 0.6 - 0.9 cm LVPW Diastolic Thickness 1.0 cm 0.6 - 1.0 / 0.6 - 0.9 cm LV Relative Wall Thickness 0.4 LVOT Diameter 2.5 cm M-MODE Aortic Root Diameter MM 4.1 cm LA Systolic Diameter MM 3.7 cm LA Ao Ratio MM 0.9 AV Cusp Separation MM 2.4 cm DOPPLER AV Peak Velocity 106.0 cm/s AV Peak Gradient 4.5 mmHg LVOT Peak Velocity 76.0 cm/s LVOT Peak Gradient 2.3 mmHg AV Area Cont Eq pk 3.5 cm Mitral E Point Velocity 76.0 cm/s Mitral A Point Velocity 39.5 cm/s Mitral E to A Ratio 1.9 PV Peak Velocity 71.9 cm/s PV Peak Gradient 2.1 mmHg FINDINGS LEFT VENTRICLE The left ventricular systolic function is normal with an estimated ejection fraction in the range of 55-60%. Wall thickness is measured at the upper limits of normal. Normal left ventricular size. RIGHT VENTRICLE Normal right ventricular size and systolic function. LEFT ATRIUM The left atrial size is normal. RIGHT ATRIUM The right atrial size is normal. ATRIAL SEPTUM Normal atrial septal thickness without atrial level shunting by limited color doppler interrogation. AORTA The aortic root and proximal ascending aorta are normal in size on limited imaging. MITRAL VALVE Structurally normal mitral valve. No mitral valve stenosis or regurgitation. AORTIC VALVE Trileaflet aortic valve. No aortic valve stenosis or regurgitation. TRICUSPID VALVE Structurally normal tricuspid valve. No tricuspid valve stenosis or regurgitation. PULMONARY VALVE The pulmonary valve is not well visualized. VESSELS The inferior vena cava is normal in size. PERICARDIUM No pericardial effusion. Eamon Day MD, FACC (Electronically Signed) Final Date:18 January 2018 15:24
--- NOTE | 2018-01-18 16:31 | EKG ---
Date Performed: 01/17/2018 Time Performed: 14:39:44 PTAGE: 42 years EKG: ATRIAL FIBRILLATION WITH RAPID VENTRICULAR RESPONSE WITH ABERRANT CONDUCTION OR VENTRICULAR PREMATURE COMPLEXES PATTERN CONSISTENT WITH PULMONARY DISEASE POSSIBLE INFERIOR MYOCARDIAL INFARCTIO N ABNORMAL ECG NO PREVIOUS TRACING DOCTOR: Kraig Fontenot Interpretating Date/Time 01/18/2018 16:27:27
--- NOTE | 2018-01-18 16:31 | EKG ---
Date Performed: 01/17/2018 Time Performed: 20:41:32 PTAGE: 42 years EKG: ATRIAL FIBRILLATION WITH RAPID VENTRICULAR RESPONSE RIGHT BUNDLE BRANCH BLOCK LEFT POSTERIO R FASCICULAR BLOCK ABNORMAL ECG PREVIOUS TRACING : 01/17/2018 14.39 Since the previous tracing, no significant change noted DOCTOR: Kraig Fontenot Interpretating Date/Time 01/18/2018 16:27:34
--- NOTE | 2018-01-18 16:31 | EKG ---
Date Performed: 01/18/2018 Time Performed: 03:27:40 PTAGE: 42 years EKG: ATRIAL FIBRILLATION WITH RAPID VENTRICULAR RESPONSE MARKED RIGHT AXIS DEVIATION RIGHT BUNDL E BRANCH BLOCK ABNORMAL ECG PREVIOUS TRACING : 01/17/2018 22.42 Since the previous tracing, no significant change noted DOCTOR: Kraig Fontenot Interpretating Date/Time 01/18/2018 16:27:45
[2018-01-18] MEDS ORDERED: IOHEXOL 350 MG/ML 10 ML VIAL (for RAD DIAG) IVCONTRAST ONE (16:52)
--- NOTE | 2018-01-18 17:26 | PD.CARD.PN ---
Subjective Subjective Remarks feels better Objective Medications Current Medications Medications (Trade) Dose Ordered Sig/Scotty Route Start Time Stop Time Status Last Admin (NS Flush) 2 ml UNSCH PRN IVF 01/17/18 14:45 (Aspirin Chew) 81 mg DAILY PO 01/18/18 09:00 01/18/18 08:13 (Zofran Inj) 4 mg Q6H PRN IVP 01/17/18 17:00 (Tylenol) 650 mg Q6H PRN PO 01/17/18 17:00 (Nancy-Colace) 1 tab BID PO 01/17/18 21:00 (Milk Of Magnesia Liq) 30 ml Q12H PRN PO 01/17/18 17:00 (Senokot) 17.2 mg Q12H PRN PO 01/17/18 17:00 (Dulcolax Supp) 10 mg DAILY PRN RECTAL 01/17/18 17:00 (Lactulose Liq) 30 ml DAILY PRN PO 01/17/18 17:00 (Hygroton) 50 mg DAILY PO 01/18/18 09:00 01/18/18 08:13 (Prinivil) 40 mg DAILY PO 01/18/18 09:00 01/18/18 08:12 (Lopressor) 25 mg Q8HR PO 01/17/18 22:00 01/18/18 15:06 (Cardizem) 30 mg Q6HR PO 01/18/18 00:00 01/18/18 12:50 (Lovenox Inj) 130 mg Q12H SQ 01/18/18 20:00 Vital Signs / I&O Vital Signs Date Time Temp Pulse Resp B/P (MAP) Pulse Ox O2 Delivery O2 Flow Rate FiO2 01/18/18 16:22 98.0 84 20 142/69 (93) 98 01/18/18 15:10 101 01/18/18 11:16 98.3 101 20 120/75 (90) 96 01/18/18 08:38 97 21 01/18/18 07:55 115 01/18/18 07:44 97.3 109 18 135/87 (103) 97 01/18/18 06:09 95 18 118/76 (90) 98 01/18/18 03:43 21 01/18/18 03:31 98.4 88 16 131/89 (103) 95 01/18/18 02:48 96 01/18/18 01:35 98.7 91 16 135/79 (97) 94 01/17/18 23:31 103 01/17/18 23:08 100 18 133/77 (95) 96 01/17/18 22:52 98 01/17/18 22:27 97.7 54 16 114/58 (76) 96 01/17/18 21:39 01/17/18 20:57 108 16 119/64 (82) 98 Room Air 01/17/18 19:05 16 98 Room Air 01/17/18 19:05 126 16 132/95 (107) 98 Room Air I/O 01/17/18 01/17/18 01/17/18 01/18/18 01/18/18 01/18/18 07:00 15:00 23:00 07:00 15:00 23:00 Intake Total 1000 ml 500 ml Output Total 900 ml Balance 1000 ml -400 ml Intake Oral 500 ml IV Total 1000 ml Output Urine Total 900 ml Laboratory GENERAL: SKIN: Warm and dry. HEAD: Normocephalic. EYES: No scleral icterus. No injection or drainage. NECK: Supple, trachea midline. No JVD or lymphadenopathy. CARDIOVASCULAR: Regular rate and rhythm without murmurs, gallops, or rubs. RESPIRATORY: Breath sounds equal bilaterally. No accessory muscle use. GASTROINTESTINAL: Abdomen soft, non-tender, nondistended. MUSCULOSKELETAL: No cyanosis, or edema. BACK: Nontender without obvious deformity. No CVA tenderness. Laboratory Tests Test 01/17/18 20:50 01/18/18 04:32 Hemoglobin A1c 4.6 % Troponin I 0.02 NG/ML 0.02 NG/ML Thyroid Stimulating Hormone 3rd Gen 1.690 uIU/ML White Blood Count 6.9 TH/MM3 Red Blood Count 5.47 MIL/MM3 Hemoglobin 15.4 GM/DL Hematocrit 43.6 % Mean Corpuscular Volume 79.7 FL Mean Corpuscular Hemoglobin 28.1 PG Mean Corpuscular Hemoglobin Concent 35.3 % Red Cell Distribution Width 14.0 % Platelet Count 204 TH/MM3 Mean Platelet Volume 9.1 FL Blood Urea Nitrogen 20 MG/DL Creatinine 1.11 MG/DL Random Glucose 102 MG/DL Calcium Level 8.5 MG/DL Sodium Level 139 MEQ/L Potassium Level 3.7 MEQ/L Chloride Level 107 MEQ/L Carbon Dioxide Level 25.0 MEQ/L Anion Gap 7 MEQ/L Estimat Glomerular Filtration Rate 73 ML/MIN Imaging Last [address] Angiography 01/18/18 0000 Signed Impressions: Service Date/Time: December 09:34 - CONCLUSION: 1. No evidence of pulmonary embolism. 2. Extensive mediastinal and bilateral hilar lymphadenopathy. 3. Scattered noncalcified pulmonary nodules within the right lung raising the possibility of metastatic disease. 4. Diffuse increased interstitial markings bilaterally. 5. Cardiomegaly. 6. Degenerative changes and scoliosis of the thoracic spine. Tank Davenport MD Assessment and Plan Problem List: (1) Renal insufficiency ICD Codes: N28.9 - Disorder of kidney and ureter, unspecified Status: Acute (2) Atrial fibrillation with RVR ICD Codes: I48.91 - Unspecified atrial fibrillation Status: Acute (3) HTN (hypertension) ICD Codes: I10 - Essential (primary) hypertension (4) Abnormal computed tomography angiography (CTA) ICD Codes: R93.8 - Abnormal findings on diagnostic imaging of other specified body structures (5) Hyperglycemia ICD Codes: R73.9 - Hyperglycemia, unspecified (6) SUE (acute kidney injury) ICD Codes: N17.9 - Acute kidney failure, unspecified Assessment and Plan 1.) Afib - rate not controlled, but improved, consider increase cardizem or start lopressor 25 mg q8hr, continue aspirin, lovenox, his [id number] score = 1 due to hth and guidelines recommend consideration of noac or coumadin Kraig Fontenot MD Jan 18, 2018 17:26
[2018-01-18] MEDS: ENOXAPARIN SODIUM 150 MG/ML SYRINGE SQ SCH (21:31)
[2018-01-19] VITALS (11 sets, daily range): BP systolic 122–144; BP diastolic 74–80; PULSE 84–104; RESP 18; TEMP 97.8–98.5; O2SAT 94–97
--- NOTE | 2018-01-19 00:16 | MB ---
cc: Ciro Madden MD DATE: 01/17/2018 REASON FOR CONSULT: Patient with hilar adenopathy. HISTORY OF PRESENT ILLNESS: This is a 42-year-old male who has a history of hypertension and otherwise is in good health, who is visiting [place] from [facility]. He became progressively short of breath and experienced heart palpitations with chest tightness and presented to the emergency room. He states that he developed bronchitis a few weeks ago and was treated with albuterol and Claritin. He also states that his primary care ordered a CT scan and, as he was traveling to [place], informed him that he has abnormal lymphadenopathy on the CT scan. He was told that upon return from [place], he needs to followup for additional workup. In the emergency room, the patient was found to be in atrial fibrillation with rapid ventricular response. The patient is undergoing a cardiac evaluation. He initially received metoprolol and was started on Cardizem. The patient has been seen by Cardiology. In order to rule out any underlying pulmonary embolism, a lung V/Q scan was obtained which showed a segmental perfusion defect on the left with intermediate probability. He also had Doppler ultrasound of lower extremities, which did not show any DVT. Subsequently, the patient had a chest x-ray, which was normal. The patient also underwent a CT angiogram today. This did not show any evidence of pulmonary embolism; however, he was found to have extensive mediastinal and bilateral hilar lymphadenopathy. There were enlarged lymph nodes within the prevascular, pretracheal, right paratracheal, and subcarinal mediastinum, with the largest node measuring 4.5 cm. There were also scattered noncalcified pulmonary nodules in the right lung. The patient was found to have cardiomegaly. The patient has been seen by Pulmonology as well. The patient has not experienced any unintentional weight loss for the past 6 months to a year. He does not endorse any loss of appetite. He endorses good energy level. 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 He has not had any nosebleeds or gum bleeds. No petechiae or bruising. He admits to smoking half a pack of cigarettes per day. He does not drink alcohol excessively. REVIEW OF SYSTEMS: A comprehensive review of system was completed which is negative except as described in the HPI. PAST MEDICAL HISTORY: Hypertension. PAST SURGICAL HISTORY: Tonsillectomy, I and D of left leg. FAMILY HISTORY: Reviewed. It is significant for coronary artery disease and stroke. SOCIAL HISTORY: He lives in [place]. He is visiting [place]. He smokes approximately half a pack per day for the past 10-15 years. He drinks several beers per day, but does not consider himself to be drinking excessively. No illicit drug use. MEDICATIONS: Lovenox 130 mg subQ q. 12 hours, aspirin 81 mg p.o. daily, lisinopril 40 mg p.o. daily, Cardizem 30 mg p.o. hours, metoprolol 25 mg every 8 hours, senna and docusate 1 tablet p.o. b.i.d., Zofran 4 mg IV q. 6 hours p.r.n., Senokot p.r.n., bisacodyl p.r.n., lactulose p.r.n. ALLERGIES: NO KNOWN DRUG ALLERGIES. PHYSICAL EXAMINATION: VITAL SIGNS: Blood pressure is 116/72, pulse is in the 100s, temperature is 98.3, O2 saturations are 97 percent on room air. GENERAL: Well-developed, well-nourished male, in no apparent distress. HEENT: Pupils are equal, round, reactive to light. EOMI. No oral thrush. No oral lesions. NECK: Supple. No JVD. No bruits. No lymphadenopathy. CHEST: Clear to auscultation bilaterally. CARDIAC: S1, S2. Regular rate and rhythm. ABDOMEN: Soft, nontender, nondistended. Bowel sounds are present. EXTREMITIES: Without any edema, erythema or cyanosis. SKIN: Without any petechia, lesion or bruises. NEUROLOGIC: No focal deficits. PSYCHIATRIC: Mood and affect is appropriate. LABORATORY DATA: WBC is 9.1, hemoglobin is 16.9, MCV 79.3, platelet count 257. Serum chemistry: Sodium 139, potassium 3.7, chloride 104, CO2 of 25.7, BUN 21, creatinine 1.67, which is improved to 1.1 today; GFR was 46 yesterday, is 73 today; calcium 8.5, total bilirubin 1.3, AST 28, ALT 57, alk phos 118, total CK 65. Troponins are negative at 0.02. Total protein 7.7, albumin 3.7. TSH 1.69. Coags: PT 10.4, INR 1, PTT 27.3. Imaging was reviewed in the EMR. ASSESSMENT AND PLAN: This is a 42-year-old male who has a past medical history of hypertension and recent findings of lymphadenopathy, based on the CT scan, who presented to the emergency room with heart palpitations, shortness of breath and chest tightness and was found to have atrial fibrillation with rapid ventricular response. He underwent a CT angiogram to rule out underlying pulmonary embolus and was found to have diffuse mediastinal lymphadenopathy and multiple noncalcified pulmonary lesions. 1. Extensive mediastinal lymphadenopathy along with multiple noncalcified pulmonary lesions: Obviously, the concern is underlying malignancy. Differential includes lymphoma versus primary bronchogenic carcinoma versus nonmalignant causes such as sarcoidosis. This patient will need a biopsy. The patient has been seen by Pulmonology. The biopsy could be done via bronchoscopy versus CT-guided biopsy of the mediastinal lymph nodes. The patient states that he is returning to [place] in a few days and would like to defer any biopsies until his return. This is reasonable. He currently appears to be stable, and further workup could be done in [place]. 2. Atrial fibrillation with rapid ventricular response, currently undergoing cardiology evaluation. He was noted to have cardiomegaly on imaging, and echocardiogram should be considered. I would defer this to Cardiology. 3. Acute renal failure, likely prerenal, improving, which has improved today. 4. Microcytosis: This is possibly due to underlying iron deficiency. Obtain anemia studies. He is likely hemoconcentrated, with hemoglobin showing as 15.4 today. Thank you for allowing me to participate in the care of this patient. I will continue to follow this patient along. MD NITZA Mccracken/ARIELLE , 10:45 PM , 12:15 AM
[2018-01-19] MEDS: DILTIAZEM HCL 30 MG TAB PO SCH ×3 (00:38→12:35)
[2018-01-19] MEDS: METOPROLOL TARTRATE 25 MG TAB PO SCH ×2 (05:18→13:38)
[2018-01-19 05:55] LABS: % SATURATION IRON PROFILE 21.9 % (20-50); IRON (FE) 67 MCG/DL (65-175); TOTAL IRON BINDING CAPACITY 307 MCG/DL (250-450)
[2018-01-19 06:20] LABS: FERRITIN 322 NG/ML (26-388)
[2018-01-19] MEDS ORDERED: ENOXAPARIN SODIUM 40 MG/0.4 ML SYRINGE SQ SCH (08:00)
[2018-01-19] MEDS: DOCUSATE SODIUM 50 MG/SENNA 8.6 MG TAB PO SCH (09:00)
[2018-01-19] MEDS: LISINOPRIL 20 MG TAB PO SCH (09:23)
[2018-01-19] MEDS: ASPIRIN 81 MG CHEW TAB PO SCH (09:23)
[2018-01-19] MEDS ORDERED: IOHEXOL 350 MG/ML 10 ML VIAL (for RAD DIAG) IVCONTRAST ONE (09:38)
--- NOTE | 2018-01-19 09:48 | HHI.FPPN ---
Subjective Remarks No acute events overnight. Patient continues to state that his chest discomfort /palpitations have resolved. After discussion with oncology yesterday, patient is desiring to have further workup of his abnormal lung findings as an outpatient in his home state of [place]. Currently denies chest pain, shortness of breath, nausea vomiting. (Elvin Jeffrey MD R1) Objective Vitals Vital Signs Date Time Temp Pulse Resp B/P (MAP) Pulse Ox O2 Delivery O2 Flow Rate FiO2 01/19/18 09:00 97.8 94 18 144/74 (97) 95 01/19/18 06:00 88 01/19/18 05:16 98.5 84 18 129/80 (96) 97 01/19/18 05:00 94 01/19/18 04:08 89 01/19/18 03:00 86 01/19/18 02:00 96 01/19/18 01:00 96 01/19/18 00:36 98.5 90 18 122/78 (93) 94 01/19/18 00:11 94 01/18/18 23:00 102 01/18/18 22:51 98.4 104 18 143/92 (109) 97 01/18/18 22:51 90 01/18/18 22:06 103 01/18/18 21:29 106 97 01/18/18 20:05 102 01/18/18 20:03 98 21 01/18/18 19:58 98.3 101 18 116/72 (87) 97 01/18/18 16:22 98.0 84 20 142/69 (93) 98 01/18/18 15:10 101 01/18/18 11:16 98.3 101 20 120/75 (90) 96 I/O 01/18/18 01/18/18 01/18/18 01/19/18 01/19/18 01/19/18 07:00 15:00 23:00 07:00 15:00 23:00 Intake Total 500 ml 740 ml Output Total 900 ml 900 ml Balance -400 ml -160 ml Intake Oral 500 ml 740 ml Output Urine Total 900 ml 900 ml # Voids 2 # Bowel Movements 2 (Elvin Jeffrey MD R1) Result Diagram: 01/18/1843101/18/18 043 Objective Remarks GENERAL: Well-nourished, well-developed patient. No acute distress. SKIN: Warm and dry. No rash. EYES: No scleral icterus. No injection or drainage. PERRLA. EOMI. HENT: Normocephalic. Atraumatic. MMM. NECK: No visible JVD or lymphadenopathy. CARDIOVASCULAR: Warm and well perfused. Irregularly irregular with heart rate in the 90's. RESPIRATORY: Normal respiratory effort. Clear to auscultation bilaterally with no wheezes GASTROINTESTINAL: Abdomen nondistended, nontender. MUSCULOSKELETAL: Strength grossly WNL. No BLE edema BACK: Without obvious deformity. NEURO/PSYCH: Afocal. Awake, alert, and oriented x3. (Elvin Jeffrey MD R1) A/P Assessment and Plan 42-year-old male with a history of hypertension presenting to the ED with chest pain, palpitations. Initial evaluation found patient to be in A. fib with RVR and SUE. Patient was complaining of dyspnea on exertion, and in the setting of a recent 17 hour car ride will also order a VQ scan and lower extremity Dopplers to rule out DVT/PE. Consulting cardiology on admission. V/Q scan showed intermediate probability study for PE. Therapeutic Lovenox was started as given IVF prior to having a CTA done on the morning of 01/18. CTA did not show PE but did show extensive mediastinal and bilateral hilar lymphadenopathy as well as scattered noncalcified pulmonary nodules within the right lung. Oncology was consulted and is recommending CT-guided biopsy which will be done as an outpatient. Also ordered CT of his abdomen to evaluate for other possible malignancies. Discharge Planning Likely today (Elvin Jeffrey MD R1) Attending Attestation Patient seen and examined, discussed with the medicine team. He is back in his room from his abdominal CT which was negative for any obvious malignancy. He has an appointment with his primary care doctor for Monday, and his mother is working on getting him an appointment with her pants cutter as well. He was aware that he had enlarged lymph nodes prior to his vacation, so his primary care doctor is also aware. He does have a disc of his imaging from our facility. He will be discharged today on Xarelto to follow-up with his doctor in [place]. I agree with the physical findings as documented, and with the plan. (Angela Walker MD) Problem List: (1) Atrial fibrillation with RVR ICD Codes: I48.91 - Unspecified atrial fibrillation Status: Acute Plan: Patient presented with chest pain, palpitations for the last 24 hours New onset A. fib with RVR on admission ACS workup negative Received metoprolol 5 mg IV push 3 in the ED, continues to have heart rates in the 110s-120s Echocardiogram is essentially normal Cardizem 30 mg p.o. 4 times daily Lopressor 25 mg p.o. 3 times daily Rate has been well controlled but patient continues to be in A. fib. Aspiring 81mg daily Consulted cardiology (2) Abnormal computed tomography angiography (CTA) ICD Codes: R93.8 - Abnormal findings on diagnostic imaging of other specified body structures Plan: CTA ordered on 01/18 to rule out PE While the imaging study did not show evidence of a pulmonary embolism, it did show extensive mediastinal and bilateral hilar lymphadenopathy as well as scattered noncalcified pulmonary nodules in the right lung Consulted hematology/oncology Recommending CT-guided biopsy of lymph nodes, patient desires to do this in his home state as an outpatient CT abdomen ordered to evaluate for any malignancy (3) Dyspnea on exertion ICD Codes: R06.09 - Other forms of dyspnea Plan: Patient reporting dyspnea on exertion for last 2 days Had recent 17 hour car ride from [facility] to [facility] VQ scan on admission showed intermediate probability for PE BLE dopplers were negative Patient was started on therapeutic Lovenox and given IV fluids to treat SUE prior to CTA See CTA findings below (4) HTN (hypertension) ICD Codes: I10 - Essential (primary) hypertension Plan: Known history of HTN Takes Chlorthalidone 50mg daily, Lisinopril 40mg daily Will continue home meds (5) SUE (acute kidney injury) ICD Codes: N17.9 - Acute kidney failure, unspecified Plan: Patient with elevated Creatinine/BUN on admission of 1.67 / 21 on admission Received 3 L boluses on 01/17 Creatinine improved to 1.11 on 01/18. Resolved (6) FEN Plan: No IVF for now will replete electrolytes as needed Regular diet On therapeutic Lovenox (Elvin Jeffrey MD R1) Elvin Jeffrey MD R1 Jan 19, 2018 09:48 Angela Walker MD Jan 19, 2018 11:12
--- NOTE | 2018-01-19 09:50 | RADRPT ---
EXAM DATE/TIME: 01/19/2018 09:32 [facility] COMPARISON: CT PULMONARY ANGIOGRAM, January 18, 2018, 9:34. INDICATIONS : Mediastinal adenopathy. Evaluate for metastatic disease. IV CONTRAST: 92 cc Omnipaque 350 (iohexol) IV ORAL CONTRAST: No oral contrast ingested. RADIATION DOSE: 17.00 CTDIvol (mGy) MEDICAL HISTORY : Cardiovascular disease. Hypertension. SURGICAL HISTORY : None. ENCOUNTER: Initial ACUITY: 1 day PAIN SCALE: 0/10 LOCATION: anterior TECHNIQUE: Volumetric scanning of the abdomen and pelvis was performed. Using automated exposure control and ad justment of the mA and/or kV according to patient size, radiation dose was kept as low as reasonably achievable to obtain optimal diagnostic quality images. DICOM format image data is available electro nically for review and comparison. FINDINGS: LOWER LUNGS: The visualized lower lungs are clear. 1 cm lymph node at the esophageal hiatus. 2.2 cm lymph node pos terior to left atrium LIVER: Homogeneous density without lesion. There is no dilation of the biliary tree. No calcified gallston es. A few small periportal lymph nodes, not unusual finding SPLEEN: Normal size without lesion. PANCREAS: Within normal limits. KIDNEYS: Normal in size and shape. There is no mass, stone or hydronephrosis. ADRENAL GLANDS: Within normal limits. VASCULAR: There is no aortic aneurysm. BOWEL/MESENTERY: The stomach, small bowel, and colon demonstrate no acute abnormality. There is no free intraperitone al air or fluid. ABDOMINAL WALL: Within normal limits. RETROPERITONEUM: There is no lymphadenopathy. BLADDER: No wall thickening or mass. REPRODUCTIVE: Within normal limits. INGUINAL: There is no lymphadenopathy or hernia. MUSCULOSKELETAL: Within normal limits for patient age. CONCLUSION: Normal examination of the abdomen and pelvis. There are some lymph nodes in the posterior mediastinum not nearly as impressive as the chest CT. The solid organs show no evidence of malignancy. Eamon Luis MD on January 19, 2018 at 9:45 Board Certified Radiologist. This report was verified electronically.
--- NOTE | 2018-01-19 10:36 | PD.CARD.PN ---
Subjective Subjective Remarks feels better Objective Medications Current Medications Medications (Trade) Dose Ordered Sig/Scotty Route Start Time Stop Time Status Last Admin (NS Flush) 2 ml UNSCH PRN IVF 01/17/18 14:45 (Aspirin Chew) 81 mg DAILY PO 01/18/18 09:00 01/19/18 09:23 (Zofran Inj) 4 mg Q6H PRN IVP 01/17/18 17:00 (Tylenol) 650 mg Q6H PRN PO 01/17/18 17:00 (Nancy-Colace) 1 tab BID PO 01/17/18 21:00 (Milk Of Magnesia Liq) 30 ml Q12H PRN PO 01/17/18 17:00 (Senokot) 17.2 mg Q12H PRN PO 01/17/18 17:00 (Dulcolax Supp) 10 mg DAILY PRN RECTAL 01/17/18 17:00 (Lactulose Liq) 30 ml DAILY PRN PO 01/17/18 17:00 (Hygroton) 50 mg DAILY PO 01/18/18 09:00 01/18/18 08:13 (Prinivil) 40 mg DAILY PO 01/18/18 09:00 01/19/18 09:23 (Lopressor) 25 mg Q8HR PO 01/17/18 22:00 01/19/18 05:18 (Cardizem) 30 mg Q6HR PO 01/18/18 00:00 01/19/18 05:18 (Lovenox Inj) 130 mg Q12H SQ 01/18/18 20:00 01/18/18 21:31 Vital Signs / I&O Vital Signs Date Time Temp Pulse Resp B/P (MAP) Pulse Ox O2 Delivery O2 Flow Rate FiO2 01/19/18 09:00 97.8 94 18 144/74 (97) 95 01/19/18 06:00 88 01/19/18 05:16 98.5 84 18 129/80 (96) 97 01/19/18 05:00 94 01/19/18 04:08 89 01/19/18 03:00 86 01/19/18 02:00 96 01/19/18 01:00 96 01/19/18 00:36 98.5 90 18 122/78 (93) 94 01/19/18 00:11 94 01/18/18 23:00 102 01/18/18 22:51 98.4 104 18 143/92 (109) 97 01/18/18 22:51 90 01/18/18 22:06 103 01/18/18 21:29 106 97 01/18/18 20:05 102 01/18/18 20:03 98 21 01/18/18 19:58 98.3 101 18 116/72 (87) 97 01/18/18 16:22 98.0 84 20 142/69 (93) 98 01/18/18 15:10 101 01/18/18 11:16 98.3 101 20 120/75 (90) 96 I/O 01/18/18 01/18/18 01/18/18 01/19/18 01/19/18 01/19/18 07:00 15:00 23:00 07:00 15:00 23:00 Intake Total 500 ml 740 ml Output Total 900 ml 900 ml Balance -400 ml -160 ml Intake Oral 500 ml 740 ml Output Urine Total 900 ml 900 ml # Voids 2 # Bowel Movements 2 Physical Exam GENERAL: SKIN: Warm and dry. HEAD: Normocephalic. EYES: No scleral icterus. No injection or drainage. NECK: Supple, trachea midline. No JVD or lymphadenopathy. CARDIOVASCULAR: Regular rate and rhythm without murmurs, gallops, or rubs. RESPIRATORY: Breath sounds equal bilaterally. No accessory muscle use. GASTROINTESTINAL: Abdomen soft, non-tender, nondistended. MUSCULOSKELETAL: No cyanosis, or edema. BACK: Nontender without obvious deformity. No CVA tenderness. Laboratory Laboratory Tests Test 01/19/18 04:11 Iron Level 67 MCG/DL Total Iron Binding Capacity 307 MCG/DL Percent Iron Saturation 21.9 % Ferritin 322 NG/ML Lactate Dehydrogenase 144 U/L Vitamin B12 Level 487 PG/ML Imaging Last 24 hours Impressions Abdomen/Pelvis CT 01/19/18 0600 Signed Impressions: Service Date/Time: Friday, January 19, 2018 09:32 - CONCLUSION: Normal examination of the abdomen and pelvis. There are some lymph nodes in the posterior mediastinum not nearly as impressive as the chest CT. The solid organs show no evidence of malignancy. Eamon Luis MD Assessment and Plan Problem List: (1) Renal insufficiency ICD Codes: N28.9 - Disorder of kidney and ureter, unspecified Status: Acute (2) Atrial fibrillation with RVR ICD Codes: I48.91 - Unspecified atrial fibrillation Status: Acute (3) HTN (hypertension) ICD Codes: I10 - Essential (primary) hypertension (4) Abnormal computed tomography angiography (CTA) ICD Codes: R93.8 - Abnormal findings on diagnostic imaging of other specified body structures (5) Hyperglycemia ICD Codes: R73.9 - Hyperglycemia, unspecified (6) SUE (acute kidney injury) ICD Codes: N17.9 - Acute kidney failure, unspecified Assessment and Plan 1.) Afib - rate controlled on lopressor 25 mg po q8hrs, continue aspirin, lovenox, his [id number] score = 1 due to hth and guidelines recommend consideration of noac or coumadin, patient requests to start coumadin, will start him on 5 mg qd, f/u inr daily Kraig Fontenot MD Jan 19, 2018 10:36
[2018-01-19] MEDS ORDERED: ASPI81 PO (11:10)
[2018-01-19] MEDS ORDERED: METO25TA3 PO (11:10)
[2018-01-19] MEDS ORDERED: XARE20TA PO (11:10)
[2018-01-19] MEDS ORDERED: DILT31TA PO (11:10)
--- NOTE | 2018-01-19 11:12 | HHI.DCPOC ---
Discharge Care Plan Diagnosis: (1) Abnormal computed tomography angiography (CTA) (2) HTN (hypertension) (3) Atrial fibrillation with RVR Goals to Promote Your Health * To prevent worsening of your condition and complications * To maintain your health at the optimal level Directions to Meet Your Goals Take your medications as prescribed Follow your dietary instruction Follow activity as directed Keep your appointments as scheduled Take your immunizations and boosters as scheduled If your symptoms worsen call your PCP, if no PCP go to Urgent Care Center or Emergency Room Smoking is Dangerous to Your Health. Avoid second hand smoke Call the 24-hour hour crisis hotline for domestic abuse at Elvin Jeffrey MD R1 Jan 19, 2018 11:12
[2018-01-19] MEDS: ENOXAPARIN SODIUM 150 MG/ML SYRINGE SQ SCH (12:30)
[2018-01-19] MEDS: CHLORTHALIDONE 50 MG TAB PO SCH (12:30)
[2018-01-19] MEDS ORDERED: WARFARIN SOD 5 MG TAB PO ONE (16:00)
[2018-01-19] MEDS ORDERED: WARFARIN SOD 5 MG TAB PO SCH (16:00)
--- NOTE | 2018-01-19 17:31 | PD.ONC.PN ---
Subjective Subjective Remarks Patient seen earlier around 1:00PM was getting ready to be discharged hear rate under control on Coumadin denies any pain traveling to [place] soon Objective Data Date Time Temp Pulse Resp B/P (MAP) Pulse Ox O2 Delivery O2 Flow Rate FiO2 01/19/18 12:00 104 01/19/18 09:00 97.8 94 18 144/74 (97) 95 01/19/18 06:00 88 01/19/18 05:16 98.5 84 18 129/80 (96) 97 01/19/18 05:00 94 01/19/18 04:08 89 01/19/18 03:00 86 01/19/18 02:00 96 01/19/18 01:00 96 01/19/18 00:36 98.5 90 18 122/78 (93) 94 01/19/18 00:11 94 01/18/18 23:00 102 01/18/18 22:51 98.4 104 18 143/92 (109) 97 01/18/18 22:51 90 01/18/18 22:06 103 01/18/18 21:29 106 97 01/18/18 20:05 102 01/18/18 20:03 98 21 01/18/18 19:58 98.3 101 18 116/72 (87) 97 01/19/18 01/19/18 01/19/18 07:00 15:00 23:00 Intake Total 740 ml Output Total 900 ml Balance -160 ml Result Diagram: 01/18/18 0432 01/18/18 0432 Laboratory Results Laboratory Tests Test 01/19/18 04:11 Iron Level 67 MCG/DL Total Iron Binding Capacity 307 MCG/DL Percent Iron Saturation 21.9 % Ferritin 322 NG/ML Lactate Dehydrogenase 144 U/L Vitamin B12 Level 487 PG/ML Imaging Studies Last 24 hours Impressions Abdomen/Pelvis CT 01/19/18 0600 Signed Impressions: Service Date/Time: Friday, January 19, 2018 09:32 - CONCLUSION: Normal examination of the abdomen and pelvis. There are some lymph nodes in the posterior mediastinum not nearly as impressive as the chest CT. The solid organs show no evidence of malignancy. Eamon Luis MD Objective Remarks GENERAL: nad SKIN: Warm and dry. HEAD: Normocephalic. EYES: No scleral icterus. No injection or drainage. NECK: Supple, trachea midline. No JVD or lymphadenopathy. LYMPHATIC: No adenopathy. CARDIOVASCULAR: Regular rate and rhythm without murmurs. RESPIRATORY: Breath sounds equal bilaterally. No accessory muscle use. GASTROINTESTINAL: Abdomen soft, non-tender, nondistended. EXTREMITIES: No cyanosis, or edema. Assessment/Plan Problem List: (1) Dyspnea on exertion ICD Codes: R06.09 - Other forms of dyspnea (2) SUE (acute kidney injury) ICD Codes: N17.9 - Acute kidney failure, unspecified (3) Hilar lymphadenopathy ICD Codes: R59.0 - Localized enlarged lymph nodes (4) Abnormal computed tomography angiography (CTA) ICD Codes: R93.8 - Abnormal findings on diagnostic imaging of other specified body structures Assessment 42-year-old male who has a past medical history of hypertension and recent findings of lymphadenopathy, based on the CT scan, who presented to the emergency room with heart palpitations, shortness of breath and chest tightness and was found to have atrial fibrillation with rapid ventricular response. He underwent a CT angiogram to rule out underlying pulmonary embolus and was found to have diffuse mediastinal lymphadenopathy and multiple noncalcified pulmonary lesions. 1. Extensive mediastinal lymphadenopathy along with multiple noncalcified pulmonary lesions: concerning for underlying malignancy. Differential includes lymphoma versus primary bronchogenic carcinoma versus nonmalignant causes such as sarcoidosis. - discussed results of CT scan of abdomen which was negative - advised to see primary care and oncology in [place] - patient will pursue biopsy there - patient's mother was present during this conversation iCro Madden MD Jan 19, 2018 17:31
== END 2018-01-19 13:59 | disposition home or self-care (01) ==
LOC: NEPC 14:12 → NEDA 16:51 → NEPFCDU 22:08 → HCIN 01-18 22:25
PROVIDERS: ADMIT Family Medicine; ATTEND Family Medicine
DX: I48.91 Unspecified atrial fibrillation (principal); I11.9 Hypertensive heart disease without heart failure; R06.00 Dyspnea, unspecified; R73.9 Hyperglycemia, unspecified; N17.9 Acute kidney failure, unspecified; R79.89 Other specified abnormal findings of blood chemistry; R07.89 Other chest pain; R00.2 Palpitations; I45.10 Unspecified right bundle-branch block; R71.8 Other abnormality of red blood cells; I44.5 Left posterior fascicular block; R94.31 Abnormal electrocardiogram [ECG] [EKG]; F17.210 Nicotine dependence, cigarettes, uncomplicated; E66.9 Obesity, unspecified; Z79.899 Other long term (current) drug therapy
CPT/HCPCS: 71045; 71275; 74177; 78582; 80048; 80053; 80307; 82550; 82607; 82728; 82747; 83036; 83540; 83550; 83615; 83735; 84443; 84484; 85025; 85027; 85610; 85730; 93005; 93306; 93970; 96361; 96372; 96374; 96376; 99285; A9540; A9567; G0378; J1650; J7030; Q9967